=== PATIENT | female | born 1955 | race African-American/Black ===

== ENCOUNTER → 2025-06-10 | Day surgery (SDC) | payer MEDICARE ==
[~2025-06-10] MED LIST: ALLERGY RELIEF10 M4; ASPIRIN81 MG PO; BENEFIBER; BENICAR HCT 401 EAC1 PO; BENICAR20 MG PO; BENZONATATE100 MG PO; ENULOSE10 GM/15 M PO; FENTANYL CITRATE/PF 100MCG/2 ML INJ ONE; GLIPIZIDE5 MG PO; HYDROXYZIN10 MG/5 ML PO; JARDIANCE10 MG PO; LACTATED RINGER'S 1,000 ML ONE; LASIX20 MG PO; LIDOCAINE HCL 2% LOCAL INJ 5 ML SDV VIAL INJ ONE; LINZESS290 MCG PO; LORATADINE10 MG PO; METOPROLOL SUCC50 MG PO; MONTELUKAST SOD10 MG PO; MYRBETRIQ50 MG PO; NEURONTIN300 MG PO; NIFEDIPINE ER30 M1 PO; OMEPRAZOLE MAGN20 MG PO; ONDANSETRON HCL INJ 2MG/ML 2ML 2 MG/ML VIAL ONE; PAROXETINE HCL20 MG PO; PEPCID20 MG PO; POTASSIUM CHLO10 ME1 PO; PROCTOSOL-HC28.35 GM PR; PROPOFOL IV EMULSION 50 ML IV ONE; RISPERDAL1 MG PO; RYBELSUS14 MG PO; SIMVASTATIN80 MG PO; TEMAZEPAM15 MG PO; TIZANIDINE HCL4 M1 PO; TRAZODONE HCL50 MG PO; ULTRAM 50MG50 MG PO; VEOZAH45 MG PO; VITAMIN D3250 MC1
[2025-06-10 12:41] LABS: BASOPHILS % 0.2 % (0.0-1.0); EOSINOPHILS % 0.3 % (0.0-6.0); LYMPHOCYTES % 31.7 % (18.0-39.1); MONOCYTES % 6.3 % (4.4-11.3); NEUTROPHILS % 61.3 % (38.7-80.0); RED CELL DISTRIBUTION WIDTH 12.7 % (11.7-14.4)
[2025-06-10 15:53] VITALS: TEMP 97.6
[2025-06-10 16:25] VITALS: BP 136/79; PULSE 74; RESP 16; O2SAT 97
== END | disposition home or self-care (01) ==
LOC: ENDO 11:06
PROVIDERS: ATTEND Internal Medicine Gastroenterology
DX: K22.2 Esophageal obstruction (principal); K29.50 Unspecified chronic gastritis without bleeding; K31.7 Polyp of stomach and duodenum; K44.9 Diaphragmatic hernia without obstruction or gangrene; K21.9 Gastro-esophageal reflux disease without esophagitis; I10 Essential (primary) hypertension; E78.5 Hyperlipidemia, unspecified; E11.40 Type 2 diabetes mellitus with diabetic neuropathy, unspecified; E73.9 Lactose intolerance, unspecified; M19.90 Unspecified osteoarthritis, unspecified site; M79.7 Fibromyalgia; Z79.82 Long term (current) use of aspirin; Z79.84 Long term (current) use of oral hypoglycemic drugs; Z79.899 Other long term (current) drug therapy; Z01.812 Encounter for preprocedural laboratory examination; Z01.810 Encounter for preprocedural cardiovascular examination; Z88.0 Allergy status to penicillin
CPT/HCPCS: 36415; 43233; 43239; 82948; 85025; 88305; 88342; 93005; J2003; J2405; J2704; J3010; J7121; 88312